=== PATIENT | female | born 1980 | race Caucasian/White ===

== ENCOUNTER 2021-09-25 21:44 | Emergency (ER) | payer BC ==
[2021-09-25] MEDS: NORVASC 5 MG PO ONE (22:34)
[2021-09-25] MEDS ORDERED: Catapres 0.1 MG ONE (22:34)
[2021-09-25] MEDS: Catapres 0.1 MG PO ONE (22:34)
[2021-09-25] MEDS ORDERED: NORVASC 5 MG ONE (22:34)
[2021-09-25 22:56] LABS: Absolute Neutrophil Ct (ANC) 3.51 (1.4-6.9); BASOPHIL % 0.3 % (0.0-0.4); Basophil (Absolute #) 0.02 (0-0.4); Eosinophil % 1.2 % (0.00-5.0); Eosinophil (Absolute #) 0.09 (0-0.5); Hematocrit 44.4 % (35-47); Hemoglobin 13.9 gm/dl (12.0-16.0); Lymphocyte (Absolute #) 2.81 (1.0-4.6); Lymphocytes % 38.3 % (24.0-44.0); Mean Cell Volume 92.7 fl (78-100); Mean Corpuscular Hgb Concent. 31.3 g/dl (32-36); Mean Platelet Volume 10.3 fl (7.5-11.0); Monocytes % 12.3 % (0.0-12.0); Neutrophil % 47.9 % (36.0-66.0); Platelet Count 363 K/mm3 (150-450); Red Blood Count 4.79 M/mm3 (4.1-5.4); Red Cell Distribution Width 13.4 % (11.5-14.0); White Blood Count 7.3 K/mm3 (4.0-10.5)
[2021-09-25 23:12] LABS: ALBUMIN 3.8 g/dL (3.5-5.0); ALKALINE PHOSPHATASE 59 U/L (38-126); ANION GAP 13.3 MEQ/L (5-15); BLOOD UREA NITROGEN 6 mg/dL (7-17); CHLORIDE 103 mmol/L (98-107); Calcium 8.4 mg/dL (8.4-10.2); Carbon Dioxide 21 mmol/L (22-30); Creatinine 1 0.83 mg/dL (0.52-1.04); EST GLOMERULAR FILTRATION RATE > 60.0 ML/MIN; Glucose 109 mg/dL (74-106); Potassium 3.6 mmol/L (3.5-5.1); SGOT/AST 27 U/L (14-36); SGPT/ALT 13 U/L (0-35); SODIUM 134 mmol/L (137-145); Total Protein 7.3 g/dL (6.3-8.2)
--- NOTE | 2021-09-25 23:33 | ERPHSYRPT ---
- History of Present Illness Time Seen by Provider: 09/25/21 22:20 Source: patient, family Exam Limitations: no limitations Patient Subjective Stated Complaint: Patient was a [employer] shopping when she became dizzy and started having "foggy thinking." Patient states her right arm was tingling "like a pins and needles feeling." Denies any pain then or now. Denies any tingling anywhere else then or now. phoned with patient's permission and asked about patient condition. states that patient arrived home from [facility] "shaky, crying, and disoriented." states that her speech was not slurred but that she was slow to respond/answer his questions and that she had a hard time answering some "basic questions" for him. Event occurred approx 2 hours prior to arrival to ED. Triage Nursing Assessment: Patient ambulated back to ED without difficulties. She is alert and oriented at this time and answering questions appropriately. CMS checks to BUE and BLE WNL. Patient is able to hold BUE and BLE up off of bed without difficulties or without them drifting downward. Smile is symetrical; no drooping noted. PERRL. Radial pulses present in both wrists and equal in strength. B/P obtained in both arms for comparison. 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 She was at [facility] approximately 2 hours prior to arrival when she noticed that her vision blurred, her mind became foggy, she had difficulty recalling words, and her right arm developed and [id number] sensation. Her blood pressure was elevated at 160/95 she did have a similar episode approximately 8 years ago which was t reated at [facility] she did have a CT at that time. At the time of exam she states that she is totally back to normal. Time of Onset/Last Time Seen Normal: Last normal about 2 hours prior to arrival Timing/Duration: today Severity: moderate Character of Deficits: altered sensation (Right arm numb and tingly), impaired speech Deficits: no difficulties Baseline/Normal Cognition: alert oriented x 3 Current Cognition: alert oriented x 3 Baseline Gait: walks w/o assistance Associated Symptoms: confusion, paresthesia, slurred speech Allergies/Adverse Reactions: No Known Drug Allergies Allergy (Unverified 09/25/21 22:01) Home Medications: Norgestimate-Ethinyl Estradiol [Tri Femynor 28 Tablet] 1 tab PO DAILY 09/25/21 [History] Hx Tetanus, Diphtheria Vaccination/Date Given: Yes Hx Influenza Vaccination/Date Given: Yes Hx Pneumococcal Vaccination/Date Given: No Immunizations Up to Date: Yes Travel Risk - International Travel Have you traveled outside of the country in past 3 weeks: No - Coronavirus Screening Are you exhibiting any of the following symptoms?: No Close contact with a COVID-19 positive Pt in past 14-21 Days: No - Vaccine Status Have you recieved a Covid-19 vaccination: Yes 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: [employer] - Vaccination Dates Date of 2cond Vaccination (if applicable): May 2021 - Review of Systems Constitutional: No Fever, No Chills Eyes: No Symptoms Ears, Nose, & Throat: No Symptoms Respiratory: No Cough, No Dyspnea Cardiac: No Chest Pain, No Edema, No Syncope Abdominal/Gastrointestinal: No Abdominal Pain, No Nausea, No Vomiting, No Diarrhea Genitourinary Symptoms: No Dysuria Musculoskeletal: No Back Pain, No Neck Pain Skin: No Rash Neurological: No Dizziness, No Focal Weakness, No Sensory Changes Psychological: No Symptoms Endocrine: No Symptoms All Other Systems: Reviewed and Negative - Past Medical History Pertinent Past Medical History: Yes Neurological History: No Pertinent History ENT History: No Pertinent History Cardiac History: No Pertinent History Respiratory History: No Pertinent History Endocrine Medical History: No Pertinent History Musculoskeletal History: No Pertinent History GI Medical History: No Pertinent History History: No Pertinent History Psycho-Social History: No Pertinent History Female Reproductive Disorders: No Pertinent History - Past Surgical History Past Surgical History: Yes Neuro Surgical History: No Pertinent History Cardiac: No Pertinent History Respiratory: No Pertinent History Gastrointestinal: No Pertinent History Genitourinary: No Pertinent History Musculoskeletal: No Pertinent History Female Surgical History: Section Other Surgical History: Breast Augmentation - Social History Smoking Status: Never smoker Exposure to second hand smoke: No Drug Use: none Patient Lives Alone: No - Female History Hx Last Menstrual Period: About a month ago Hx Now: No - Nursing Vital Signs Nursing Vital Signs: Initial Vital Signs Temperature 98.7 F 09/25/21 22:13 Pulse Rate 84 09/25/21 22:13 Respiratory Rate 20 09/25/21 22:13 Blood Pressure 164/100 09/25/21 22:13 O2 Sat by Pulse Oximetry 100 12/19/21 22:13 Pain Scale Pain Intensity 0 - Patricia Coma Scale Best Eye Response (Patricia): (4) open spontaneously Best Verbal Response (Patricia): (5) oriented Best Motor Response ([place]): (6) obeys commands [place] Total: 15 - Physical Exam General Appearance: no apparent distress, alert Eye Exam: bilateral eye: PERRL, EOMI Ears, Nose, Throat Exam: normal ENT inspection, moist mucous membranes Neck Exam: normal inspection, non-tender, supple Respiratory: normal breath sounds, lungs clear, airway intact, No respiratory distress Cardiovascular: regular rate/rhythm, No edema Gastrointestinal: soft, No tenderness, No distention Back Exam: normal inspection Extremity Exam: normal inspection, No pedal edema Mental Status: alert, 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 driver Exam: tongue midline Coordination/Gait: normal finger to nose, normal gait Skin Exam: normal color, warm, dry, No rash SpO2 Interpretation: normal SpO2: 100 O2 Delivery: Room Air - Course Nursing assessment & vital signs reviewed: Yes EKG Interpreted by Me: RATE (90), Sinus Rhythm, NORMAL AXIS, NORMAL INTERVALS, NORMAL ST-T, Other (Probable left ventricular hypertrophy) - CT Exams Head CT Interpretation: Tele-radiologist Report Ordered Tests: Active Orders 24 hr Category Date Time Status EKG-ER Only STAT Care 09/25/21 22:29 Active NPO (ED) STAT Care 09/25/21 22:29 Active HEAD WITHOUT CONTRAST [CT] Stat Exams 09/25/21 22:30 Taken CBC W DIFF Stat Lab 09/25/21 22:52 Completed CMP Stat Lab 09/25/21 22:52 Completed TROPONIN Q3H Lab 09/25/21 22:52 Received TROPONIN Q3H Lab 09/26/21 01:30 Ordered TROPONIN Q3H Lab 09/26/21 04:30 Ordered TROPONIN Q3H Lab 09/26/21 07:30 Ordered TROPONIN Q3H Lab 09/26/21 10:30 Ordered UA W/RFX UR CULTURE Stat Lab 09/25/21 22:29 Ordered Medication Summary Discontinued Medications Generic Name Dose Route Start Last Admin Trade Name Freq PRN Reason Stop Dose Admin Amlodipine Besylate 5 mg 09/25/21 22:28 09/25/21 22:34 Amlodipine Besylate 5 Mg Tablet PO 09/25/21 22:29 5 mg STAT ONE Administration Amlodipine Besylate Confirm 09/25/21 22:34 Amlodipine Besylate 5 Mg Tablet Administered 09/25/21 22:35 Dose 5 mg .ROUTE .STK-MED ONE Clonidine 0.1 mg 09/25/21 22:28 09/25/21 22:34 Clonidine Hcl 0.1 Mg Tablet PO 09/25/21 22:29 0.1 mg STAT ONE Administration Clonidine Confirm 09/25/21 22:34 Clonidine Hcl 0.1 Mg Tablet Administered 09/25/21 22:35 Dose 0.1 mg .ROUTE .STK-MED ONE Lab/Rad Data: Laboratory Result Diagrams 09/25/21 22:52 09/25/21 22:52 Laboratory Results 09/25/21 09/25/21 Range/Units 22:52 22:52 WBC 7.3 (4.0-10.5) K/mm3 RBC 4.79 (4.1-5.4) M/mm3 Hgb 13.9 (12.0-16.0) gm/dl Hct 44.4 (35-47) % MCV 92.7 (78-100) fl MCH 29.0 (26-32) pg MCHC 31.3 L (32-36) g/dl RDW 13.4 (11.5-14.0) % Plt Count 363 (150-450) K/mm3 MPV 10.3 (7.5-11.0) fl Gran % 47.9 (36.0-66.0) % Eos # (Auto) 0.09 (0-0.5) Absolute Lymphs (auto) 2.81 (1.0-4.6) Absolute Monos (auto) 0.90 (0.0-1.3) Lymphocytes % 38.3 (24.0-44.0) % Monocytes % 12.3 H (0.0-12.0) % Eosinophils % 1.2 (0.00-5.0) % Basophils % 0.3 (0.0-0.4) % Absolute Granulocytes 3.51 (1.4-6.9) Basophils # 0.02 (0-0.4) Sodium 134 L (137-145) mmol/L Potassium 3.6 (3.5-5.1) mmol/L Chloride 103 (98-107) mmol/L Carbon Dioxide 21 L (22-30) mmol/L Anion Gap 13.3 (5-15) MEQ/L BUN 6 L (7-17) mg/dL Creatinine 0.83 (0.52-1.04) mg/dL Estimated GFR > 60.0 ML/MIN Glucose 109 H (74-106) mg/dL Calcium 8.4 (8.4-10.2) mg/dL Total Bilirubin 0.50 (0.2-1.3) mg/dL AST 27 (14-36) U/L ALT 13 (0-35) U/L Alkaline Phosphatase 59 (38-126) U/L Serum Total Protein 7.3 (6.3-8.2) g/dL Albumin 3.8 (3.5-5.0) g/dL - Progress Progress: improved Counseled pt/family regarding: lab results, diagnosis, need for follow-up (Inform the patient that she really should insist on a neurologic consultation given no her symptoms have totally resolved this would be her second episode.) - Departure Departure Disposition: Home Clinical Impression: Hypertensive crisis Condition: Stable Critical Care Time: No Referrals: JOANNE LÓPEZ PA [Primary Care Provider] - Follow up/PCP as directed Instructions: Malignant Hypertension (DC) Prescriptions: Amlodipine Besylate 5 mg [Norvasc 5 mg] 5 mg PO DAILY 30 Days #30 tablet
[2021-09-25 23:55] VITALS: BP 128/88; PULSE 83; O2SAT 99
--- NOTE | 2021-09-26 09:19 | XRAY ---
Indication: Headache and vertigo. Multiple contiguous axial images obtained through the head without contrast. Comparison: None Normal appearing brain parenchyma, ventricles, and bony calvarium. Visualized paranasal sinuses and mastoid air cells are clear. Impression: Normal CT head without contrast exam. Comment: Preliminary interpretation made by [facility]. No critical discrepancy.
== END 2021-09-26 00:03 | disposition home or self-care (01) ==
LOC: ED 21:44
DX: I16.9 Hypertensive crisis, unspecified (principal); I10 Essential (primary) hypertension; R20.2 Paresthesia of skin; H53.8 Other visual disturbances; R41.0 Disorientation, unspecified; R47.81 Slurred speech
CPT/HCPCS: 36415; 70450; 80053; 84484; 85025; 93005; 99284; A9270-GY